=== PATIENT | female | born 1965 | race American Indian/Alaskan Native ===

== ENCOUNTER 2016-07-06 10:38 | Outpatient (CLI) | payer MEDICARE ==
[2016-07-06 11:30] LABS: Hematocrit 45.8 % (30.3-42.9); Mean Corpuscular HGB Conc 33 % (30-34); Mean Corpuscular Hemoglobin 31 pg (28-32); Mean Corpuscular Volume 93 fl (79-97); Platelet Count 159 K/mm3 (140-440); Red Blood Count 4.91 M/mm3 (3.65-5.03); Red Cell Distribution Width 16.1 % (13.2-15.2); White Blood Count 3.5 K/mm3 (4.5-11.0)
[2016-07-06 11:54] LABS: Erythrocyte Sedimentation Rate 1 mm/Hr (0-20)
[2016-07-06 12:29] LABS: HIV-1 Antigen p24 Non React (Non React); HIVR-1/2 Ab Non React (Non React)
[2016-07-06 12:43] LABS: Alanine Aminotransferase 11 units/L (7-56); Albumin 3.9 g/dL (3.9-5); Albumin/Globulin Ratio 1.1 %; Alkaline Phosphatase 76 units/L (35-129); Anion Gap 19 mmol/L; Blood Urea Nitrogen 15 mg/dL (7-17); Carbon Dioxide 21 mmol/L (22-30); Chloride 103.4 mmol/L (98-107); Glucose 85 mg/dL (65-100); Potassium 4.1 mmol/L (3.6-5.0); Sodium 139 mmol/L (137-145); Total Protein 7.5 g/dL (6.3-8.2)
[2016-07-06 13:35] LABS: Calcium 12.7 mg/dL (8.4-10.2)
[2016-07-08 07:23] LABS: Vitamin D, 25-OH, Total 30 ng/mL (30-100)
== END 2016-07-06 10:39 | disposition home or self-care (01) ==
LOC: LAB 10:38
PROVIDERS: ATTEND Specialist
DX: G93.41 Metabolic encephalopathy (principal)
CPT/HCPCS: 36415; 80053; 82164; 82306; 82607; 83036; 83921; 84443; 85027; 85652; 86038; 86225; 86334; 86592; 86618; 87806